=== PATIENT | female | born 1980 | race Hispanic/Latino ===

== ENCOUNTER 2023-10-21 10:32 | Emergency (ER) | payer SELFPAY ==
[2023-10-21] MEDS ORDERED: hydrOXYzine 25 MG TAB ONE (11:37)
[2023-10-21 11:50] LABS: Hematocrit 36.5 % (34.9-44.5); Mean Corpuscular HGB CONC 30.1 g/dL (32.0-36.0); Mean Corpuscular Volume 66.2 fl (81.6-98.3); Mean Platelet Volume 8.5 fl (7.4-10.4); Platelet Count 319 10x3/uL (150-450); RBC Distribution Width 17.2 % (11.5-14.5); Red Blood Cell (RBC) Count 5.51 10x6/uL (3.90-5.03); White Blood Cell (WBC) Count 6.9 10x3/uL (3.5-10.5)
[2023-10-21 11:51] LABS: MDiff Complete? YES
[2023-10-21 11:53] LABS: Troponin I Less than 0.010 ng/mL (< 0.028)
[2023-10-21 12:28] LABS: Band 1 % (5-11); Lymphocytes 11 % (21-51); Monocytes 4 % (0-10); Neutrophil 84 % (42-75)
[2023-10-21 12:30] LABS: Anisocytosis SLIGHT = 6-15 cells (100X) (0-5/hpf); Hypochromia MODERATE=16-30 cells (100X) (0-5/hpf); Microcytosis SLIGHT = 6-15 cells (100X) (0-5/hpf)
[2023-10-21 12:41] LABS: ALT (SGPT) 14 U/L (8-55); AST (SGOT) 24 U/L (5-34); Albumin 4.2 g/dL (3.5-5.0); Alkaline Phosphatase 85 U/L (40-110); Anion Gap 14 mmol/L (10-20); BUN (Urea Nitrogen) 4 mg/dL (7.0-18.7); Bilirubin, Total 0.6 mg/dL (0.2-1.2); Calc. Creatinine Clearance 0 mL/min (70-130); Calcium 8.6 mg/dL (7.8-10.44); Carbon Dioxide 23 mmol/L (22-29); Chloride 103 mmol/L (98-107); Estimated GFR 104; Globulin 3.1 g/dL (2.4-3.5); Glucose 106 mg/dL (70-105); Potassium 3.7 mmol/L (3.5-5.1); Protein, Total 7.3 g/dL (6.0-8.3); Sodium 136 mmol/L (136-145)
== END 2023-10-21 13:30 | disposition home or self-care (01) ==
LOC: CSHERS 10:32
DX: R06.02 Shortness of breath (principal); F41.9 Anxiety disorder, unspecified; D50.9 Iron deficiency anemia, unspecified; I10 Essential (primary) hypertension
CPT/HCPCS: 71045; 80053; 83880; 84443; 84484; 85025; 93005

== ENCOUNTER 2023-11-13 14:16 | Emergency (ER) | payer SELFPAY | END 2023-11-13 14:53 | disposition home or self-care (01) | LOC: CSHERS 14:16 | DX: B86 Scabies (principal) | CPT/HCPCS: 99282 ==